=== PATIENT | female | born 1930 | race Caucasian/White ===

== ENCOUNTER 2016-10-17 12:55 | Inpatient (IN) ==
[2016-10-17] MEDS ORDERED: NS 1,000 ML IV ONE (13:20)
--- NOTE | 2016-10-17 13:33 | EKG Report ---
Test Performed on : 10/17/2016 1:18:57 PM Test Reason : CHEST PAIN Blood Pressure : / mmHG Vent. Rate : 103 BPM Atrial Rate : 103 BPM P-R Int : 166 ms QRS Dur : 088 ms QT Int : 378 ms P-R-T Axes : 062 064 077 degrees QTc Int : 495 ms Sinus tachycardia. with premature supraventricular complexes. Nonspecific ST abnormality Abnormal ECG When compared with ECG of 31-OCT-2015 11:43, premature supraventricular complexes. are now present T wave inversion no longer evident in Lateral leads Unconfirmed Result
[2016-10-17 14:07] LABS: BILIRUBIN URINE NEGATIVE (NEGATIVE); BLOOD URINE 1+ (NEGATIVE); CLARITY SL. CLOUDY (CLEAR); COLOR YELLOW; LEUKOCYTES URINE 2+ (NEGATIVE); NITRITE URINE POSITIVE (NEGATIVE); PH URINE 6.5; PROTEIN URINE TRACE mg/dL (NEGATIVE); UROBILINOGEN URINE NORMAL
[2016-10-17 14:13] LABS: URINE CULTURE PL NEEDED? YES; URINE EPITHELIAL CELLS <10 /HPF (<10); URINE RBC <10 /HPF (<10); URINE SOURCE CLEAN CATCH
[2016-10-17 14:13] LABS: MANUAL DIFF NEEDED? NO
--- NOTE | 2016-10-17 14:15 | Diag Imaging Result Document ---
PROCEDURE NAME: KUB ABDOMEN - 10/17/2016 KUB: FINDINGS: There is stool and gas throughout the colon. There is no evidence of small bowel dilatation, organomegaly, or mass. There are extensive vascular calcifications and numerous phleboliths. IMPRESSION: Constipation.
[2016-10-17 14:16] LABS: BASO% 0.3 % (0.0-0.8); EOS# 0.02 X1000 (0.0-0.7); EOS% 0.1 % (0.0-10.0); HEMATOCRIT 31.5 % (37.0-47.0); HEMOGLOBIN 10.1 g/dL (12.0-16.0); IMM GRAN# 0.09 X1000 (0.0-0.04); IMM GRAN% 0.6 % (0.0-0.5); LYMPH# 1.49 X1000 (1.2-3.4); LYMPH% 9.4 % (20.5-51.1); MCH 27.6 PG (27-31); MCHC 32.1 g/dL (33-37); MCV 86.1 FL (81-99); MONO# 1.02 X1000 (0.11-0.59); MONO% 6.4 % (1.7-9.3); MPV 12.7 FL (7.4-10.4); NEUT% 83.2 % (42.2-75.2); PLT 205 X1000 (130-400); RBC 3.66 XMIL (4.2-5.4)
[2016-10-17 14:33] LABS: AMYLASE 43 U/L (20-200); LIPASE 32 U/L (13-60)
--- NOTE | 2016-10-17 14:39 | Diag Imaging Result Document ---
PROCEDURE NAME: CHEST-PORTABLE - 10/17/2016 AP PORTABLE CHEST: TIME: 1328 hours. FINDINGS: There is ill-defined opacity in the right upper lobe. This is more apparent than on the previous study of 10/31/2015; however, the remainder of the chest is unchanged in appearance. IMPRESSION: Possible mild bronchopneumonia, right upper lobe.
[2016-10-17 14:40] LABS: ALBUMIN 3.6 g/dL (3.5-5.0); CALCIUM 9.3 mg/dL (8.8-10.2); MAGNESIUM 1.5 mg/dL (1.5-2.7); POTASSIUM 4.6 mmol/L (3.5-5.1); TOTAL BILIRUBIN 0.3 mg/dL (0.20-1.00); TOTAL PROTEIN 7.7 g/dL (6.3-8.3)
[2016-10-17 14:43] LABS: INR 1.09 (0.86-1.15); PROTIME 14.4 Seconds (12.1-15.5)
[2016-10-17 14:44] LABS: PTT PL 33.9 Seconds (22.6-43.9)
[2016-10-17] MEDS ORDERED: XANAX ONE (14:57)
[2016-10-17] MEDS ORDERED: XANAX PO ONE (15:08)
[2016-10-17] MEDS ORDERED: NORCO-7.5 PO ONE (15:37)
[2016-10-17] MEDS ORDERED: ROCEPHIN 1 GM/NS 1 GM/50 ML IVPB IV ONE (15:37)
--- NOTE | 2016-10-17 16:00 | PROVIDER DOCUMENTATION ---
This chart was entered by Wendy Galindo Scribe, acting as scribe for Elijah Mcgovern MD. HPI-General Adult - General Chief Complaint: Flu Symptoms Stated Complaint: PALPITATIONS/FEVER Time Seen by Provider: 10/17/16 13:10 Source: patient Allergies/Adverse Reactions: Patient Allergies Allergy/AdvReac Type Severity Reaction Status Date / Time codeine Allergy NAUSEA Verified 10/17/16 13:17 morphine AdvReac NAUSEA/VOMI Verified 10/17/16 13:17 TING Home Medications: Home Medication List Medication Instructions Recorded Confirmed Last Taken Type Levothyroxine [Synthroid] 50 microgm PO DAILY 10/31/15 10/17/16 11/17/15 05:00 History Metformin [Glucophage] 1,000 mg PO BID 10/31/15 10/17/16 11/16/15 18:00 History Metoprolol Succinate E.r. [Toprol 50 mg PO DAILY 10/31/15 10/17/16 11/17/15 09: 53 History Xl] Omeprazole 40 mg PO DAILY 10/31/15 10/17/16 11/16/15 18:00 History Sitagliptin Phosphate [Januvia] 100 mg PO DAILY 10/31/15 10/17/16 11/16/15 18: 00 History Glyburide [Diabeta] 5 mg PO WBREAKFAST #30 tablet 11/02/15 10/17/16 11/16/15 Rx Doxycycline 50 mg PO BID #0 capsule 11/17/15 10/17/16 Unknown Rx Alprazolam [Xanax] 0.25 mg PO 4XDAY 10/17/16 10/17/16 Unknown History Triamterene/Hydrochlorothiazid 1 tab PO DAILY 10/17/16 10/17/16 Unknown History [Triamterene-Hctz 75-50 mg Tab] - History of Present Illness -Gen Adult Nature of Presenting Problems: Pt is 86 y/o F presents to the ED with flu like symptoms. Pt's caregiver states body aches and F. Pt denies N/V/D. 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 Pt denies cough. Location of Pain/Injury: reports: generalized Pain Radiation: reports: no radiation Quality of Pain: reports: aching Severity: reports: mild Onset/Duration: reports: this morning Timing: reports: still present Context/Activities at Onset: reports: light activity Modifying Factors: improves with: nothing Associated Symptoms: reports: fever/chills (F), muscle aches, weakness. denies : anxiety, arm pain, back/neck pain, chest pain, constipation, cough, diaphoresis, diarrhea, dizziness, EENT symptoms, fatigue, genitourinary problems , headaches, heartburn, joint pain, loss of appetite, malaise, sinus congestion/ drainage, nausea, rash, seizure, shortness of breath, sensory/motor loss, pain with inspiration, swelling/mass in abdomen, syncope, vomiting, trouble walking Similar Symptoms Previously?: No Recently seen or treated by another doctor?: No Review of Systems - Adult - REVIEW OF SYSTEMS - ADULT Constitutional: reports: fever. denies: chills Eyes: denies: blurred vision, double vision Ears, Nose, Mouth & Throat: denies: ear pain, nose pain, throat pain Cardiovascular: reports: irregular heart rate (tachy). denies: chest pain, heart murmur Respiratory: denies: cough, shortness of breath, wheezing Gastrointestinal: denies: abdominal pain, diarrhea, nausea, vomiting Genitourinary: denies: dysuria, hematuria Musculoskeletal: reports: muscle aches, muscle weakness. denies: bone pain, joint pain, neck pain Integumentary: denies: hives, itching, mole changes Neurological: denies: dizziness/vertigo, headache/migraines Psychiatric: reports: no symptoms reported Endocrine: reports: no symptoms reported Hematologic/Lymphatic: reports: no symptoms reported Allergic/Immunologic: reports: no symptoms reported All Other Systems: Reviewed and Negative Past History - Adult - PAST MEDICAL HISTORY-ADULT Review of Records: reports: Nursing Assessment Review, Medications Reviewed, Social history reviewed & non-contributory. 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) - PRIOR SURGERIES/PROCEDURES Surgical/Procedure History: reports: cholecystectomy, hysterectomy - IMMUNIZATION STATUS Childhood Immunizations: See Nurse Assessment Flu Vaccine: See Nurse Assessment - FAMILY HISTORY Family History: reviewed, not pertinent - SOCIAL HISTORY Smoking: denies Substance Use: denies Living Situation: family Physical Exam-General - PHYSICAL EXAM-ADULT Initial Vital Signs Reviewed: Yes - CONSTITUTIONAL General Appearance: appears well, alert, no apparent distress - EYES Eyes: PERRL/EOMI, pink conjunctivae - HEAD, EARS, NOSE, MOUTH & THROAT HENMT: normocephalic/atraumatic, moist mucous membranes, normal ENT inspection, TMs normal, pharynx normal - NECK Neck: non-tender, full range of motion, supple, normal inspection - RESPIRATORY Respiratory: chest non-tender, lungs clear, normal breath sounds, no pleuratic chest pain, no respiratory distress, no accessory muscle use - CARDIOVASCULAR Cardiovascular: normal peripheral pulses, no edema, no gallop, no JVD, no murmur , tachycardia - GASTROINTESTINAL (ABDOMEN) Abdominal Exam: normal bowel sounds, non tender, soft, no organomegaly, no pulsatile mass - LYMPHATIC Lymphatic: no adenopathy - MUSCULOSKELETAL Back Exam: normal inspection, no CVA tenderness, no vertebral tenderness Extremity: normal range of motion, non-tender, no pedal edema, no calf tenderness, normal capillary refill, pelvis stable - SKIN Integumentary: normal color, normal turgor, warm/dry - NEUROLOGIC Neurologic: grossly normal - PSYCHIATRIC Psych/Mental Status: normal mood/affect, oriented x 3 Progress - PLAN OF CARE/RESULTS Progress/Plan/Lab Results: Vital Signs - 8 hr 10/17/16 13:11 Temperature 101.1 F H Pulse Rate 108 H Respiratory Rate 20 Blood Pressure 168/81 O2 Sat by Pulse Oximetry 96 Orders Category Date Time Status Cardiac Monitoring DIRECTED Care 10/17/16 13:20 Active Saline Loc NOW Care 10/17/16 13:20 Active CHEST-PORTABLE [RAD] Stat Exams 10/17/16 13:20 Ordered BLOOD CULTURE [BLDCUL] Stat Lab 10/17/16 13:20 Ordered CBC WITH ELECTRONIC DIFF [HEME] Stat Lab 10/17/16 13:20 Ordered CK PROFILE [SP CHEM] Stat Lab 10/17/16 13:20 Ordered COMPREHENSIVE METABOLIC PANEL [CHEM] Stat Lab 10/17/16 13:[address] Stat Lab 10/17/16 13:20 Uncollected LACTATE, PLASMA [CHEM] Stat Lab 10/17/16 13:20 Ordered MAGNESIUM [CHEM] Stat Lab 10/17/16 13:20 Ordered PRO B-NATRIURETIC PEPTIDE Stat Lab 10/17/16 13:[address] Ordered [address]IME WITH INR [address] [COAG] Stat Lab 10/17/16 13:[address] [COAG] Stat Lab 10/17/16 13:20 Ordered TROPONIN T Stat Lab 10/17/16 13:[address] W/POSS RFLX CULT [URINALYSIS] Stat Lab 10/17/16 13:20 Uncollected 0.9% Sodium Chloride Inj [Ns] 1,000 ml Med 10/17/16 13:20 Active IV 250 mls/hr EKG [EKG] Stat Ther 10/17/16 13:20 Ordered Laboratory Tests 10/17/16 10/17/16 10/17/16 13:20 13:34 13:55 WBC RBC Hgb Hct MCV MCH MCHC RDW Std Deviation Plt Count MPV Immature Gran % (Auto) Neut % (Auto) Lymph % (Auto) [place] % (Auto) Eos % (Auto) Baso % (Auto) Immature Gran # (Auto) Neut # (Auto) Lymph # (Auto) [place] # (Auto) Eos # (Auto) Baso # (Auto) PT INR APTT (Factor Assay) Sodium 127 L Potassium 4.6 Chloride 90 L Carbon Dioxide 20 L Anion Gap 17 BUN 23 H Creatinine 0.9 Estimated GFR/1.73 m2 60 BUN/Creatinine Ratio 26 Glucose 301 H Calculated Osmolality 270 Calcium 9.3 Magnesium 1.5 Total Bilirubin 0.30 AST 24 ALT 16 Alkaline Phosphatase 112 H Creatine Kinase 22 L Troponin T Lip-D-Kxcznatanrr Pept Total Protein 7.7 Albumin 3.6 Globulin 4.0 Albumin/Globulin Ratio 1.0 Amylase Lipase Plasma Lactate Urine Source CLEAN CATCH Urine Color YELLOW Urine Clarity SL. CLOUDY A Urine pH 6.5 Ur Specific [place] 1.010 Urine Protein TRACE A Urine Ketones TRACE Urine Blood 1+ A Urine Nitrite POSITIVE A Urine Bilirubin NEGATIVE Urine Urobilinogen NORMAL Urine Microscopic RBC <10 Urine WBC 2+ A Urine Microscopic WBC 10-20 A Ur Epithelial Cells <10 Urine Bacteria 3+ Urine Yeast PRESENT Urine Glucose 3+(500 mg/dL) A Influenza A (Rapid) NEGATIVE Influenza B (Rapid) NEGATIVE 10/17/16 10/17/16 10/17/16 13:55 13:55 13:55 WBC 15.91 H RBC 3.66 L Hgb 10.1 L Hct 31.5 L MCV 86.1 MCH 27.6 MCHC 32.1 L RDW Std Deviation 17.9 H Plt Count 205 MPV 12.7 H Immature Gran % (Auto) 0.6 H Neut % (Auto) 83.2 H Lymph % (Auto) 9.4 L [place] % (Auto) 6.4 Eos % (Auto) 0.1 Baso % (Auto) 0.3 Immature Gran # (Auto) 0.09 H Neut # (Auto) 13.25 H Lymph # (Auto) 1.49 [place] # (Auto) 1.02 H Eos # (Auto) 0.02 Baso # (Auto) 0.04 PT INR APTT (Factor Assay) Sodium Potassium Chloride Carbon Dioxide Anion Gap BUN Creatinine Estimated GFR/1.73 m2 BUN/Creatinine Ratio Glucose Calculated Osmolality Calcium Magnesium Total Bilirubin AST ALT Alkaline Phosphatase Creatine Kinase Troponin T < 0.010 Asn-R-Qzsnyyyxcvb Pept 947 H Total Protein Albumin Globulin Albumin/Globulin Ratio Amylase Lipase Plasma Lactate Urine Source Urine Color Urine Clarity Urine pH Ur Specific [place] Urine Protein Urine Ketones Urine Blood Urine Nitrite Urine Bilirubin Urine Urobilinogen Urine Microscopic RBC Urine WBC Urine Microscopic WBC Ur Epithelial Cells Urine Bacteria Urine Yeast Urine Glucose Influenza A (Rapid) Influenza B (Rapid) 10/17/16 10/17/16 10/17/16 13:55 13:55 14:06 WBC RBC Hgb Hct MCV MCH MCHC RDW Std Deviation Plt Count MPV Immature Gran % (Auto) Neut % (Auto) Lymph % (Auto) [place] % (Auto) Eos % (Auto) Baso % (Auto) Immature Gran # (Auto) Neut # (Auto) Lymph # (Auto) [place] # (Auto) Eos # (Auto) Baso # (Auto) PT 14.4 INR 1.09 APTT (Factor Assay) 33.9 Sodium Potassium Chloride Carbon Dioxide Anion Gap BUN Creatinine Estimated GFR/1.73 m2 BUN/Creatinine Ratio Glucose Calculated Osmolality Calcium Magnesium Total Bilirubin AST ALT Alkaline Phosphatase Creatine Kinase Troponin T Kcm-F-Cpjiseccgaa Pept Total Protein Albumin Globulin Albumin/Globulin Ratio Amylase 43 Lipase 32 Plasma Lactate 4.7 H Urine Source Urine Color Urine Clarity Urine pH Ur Specific [place] Urine Protein Urine Ketones Urine Blood Urine Nitrite Urine Bilirubin Urine Urobilinogen Urine Microscopic RBC Urine WBC Urine Microscopic WBC Ur Epithelial Cells Urine Bacteria Urine Yeast Urine Glucose Influenza A (Rapid) Influenza B (Rapid) Result Diagrams: 10/17/16 13:55 10/17/16 13:55 - EKG 1 Time of EKG reading by physician:: 13:18 EKG Read and Signed by:: Elijah Mcgovern EKG Interpretation (*Must complete 3 of following elements*): Abnormal Rate: 103 Rhythm: sinus tachycardia with premature supraventricular complexes Comments: nonspecific ST abnormality Departure - Departure Time of Disposition Decision: 15:37 DIAGNOSIS: Hyponatremia UTI (urinary tract infection) Qualifiers: Urinary tract infection type: site unspecified Hematuria presence: without hematuria Qualified Code(s): N39.0 - Urinary tract infection, site not specified Fever Qualifiers: Fever type: unspecified Qualified Code(s): R50.9 - Fever, unspecified Disposition: ADMITTED INPATIENT 09 Certified Medical Emergency: Emergent Condition: Stable Additional Freetext Instructions: ED Follow Up Instructions: You have been treated by a care provider in the Emergency Department. These instructions are being provided to you so you can have an understanding of how to care for yourself upon discharge. Upon discharge from the Emergency Department, you are responsible for making arrangements for follow-up care by a physician of your choice. Take all prescribed medications as directed. Return to the Emergency Department immediately for any new or worsening symptoms. You may call the Physician Referral phone number at [phone] to obtain a list of Physicians who are taking new patients. Referrals and Follow-Ups: Travis Omalley MD [Primary Care Provider] - This chart was documented by the indicated scribe, (Wendy Galindo Scribe) and accurately reflects the services I performed and decisions made by , Elijah Mcgovern MD, as attested by the provider's signature.
[2016-10-17] MEDS ORDERED: LEVAQUIN 500 MG/D5W 500 MG/100 ML IVPB IV ONE (16:15)
[2016-10-17] MEDS ORDERED: TYLENOL PO ONE (16:15)
[2016-10-17] MEDS ORDERED: ZOFRAN IV PRN (18:31)
[2016-10-17] MEDS: XANAX PO PRN ×2 (19:03→23:08)
--- NOTE | 2016-10-17 20:38 | HISTORY AND PHYSICAL ---
PRIMARY CARE PHYSICIAN: Lino Omalley MD. CHIEF COMPLAINT: Flu-like symptoms. Body aches. HISTORY OF PRESENT ILLNESS: This is a very pleasant 86-year-old female with a history of lower extremity paralysis, hypertension, diabetes mellitus who presented to the emergency room with her consumer credit counselor stating that for about the last 24 hours she has had a temperature that is reported over 101 with generalized body aches, rigors, vomiting. She does state that she hurts all over with movement and this increased with her elevated temperature and it did decrease as her temperature subsided. Chest x-ray, she was found to have right upper lobe pneumonia with an elevated white count. On arrival, she did have a temperature of 101.1 degrees oral. Blood cultures and urine cultures were obtained. She was given Levaquin as well as Rocephin and is being admitted for further evaluation and treatment. 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 PAST SURGICAL HISTORY: Cholecystectomy. Hysterectomy. Hemorrhoidectomy. Spinal cord surgery. Urostomy. ALLERGIES: Codeine and morphine which cause nausea and vomiting. HOME MEDICATIONS: Xanax, triamterene, Januvia, omeprazole, Toprol-XL, Glucophage, Synthroid, glyburide, dicyclomine 10 mg. REVIEW OF SYSTEMS: A 14 point review of systems is discussed with the patient with pertinent positives stated in the HPI. She denied chest pain, palpitations, dizziness, cough, shortness of breath, diarrhea. PHYSICAL EXAMINATION: GENERAL: This is an 86-year-old female who was lying in the bed, in no distress. VITAL SIGNS: Blood pressure is 121/78 with a heart rate of 100, respirations are 18, temperature is 101.7 degrees with oxygen saturations of 95-100% on room air. HEENT: Head is normocephalic, atraumatic. Pupils equal, round, react to light. EOMs are intact. Sclerae anicteric. Mucous membranes are dry. NECK: Supple. Trachea midline. CARDIOVASCULAR: She is tachycardic. S1 and S2 appreciated. PULMONARY: Breath sounds are diminished, clear with no increased work of breathing noted. GASTROINTESTINAL: Abdomen is soft, nontender, nondistended with bowel sounds in all 4 quadrants. MUSCULOSKELETAL: She has good range of motion to her upper extremities, lower extremities are paralyzed. She does have a brace on the right lower extremity from foot drop. NEUROLOGIC: She is alert and oriented x3. DIAGNOSTICS: WBC is 15.91 with hemoglobin 10.1, hematocrit 31.5 and platelets of 205,000. Sodium is 127, potassium 4.6, BUN 23, creatinine 0.9, with a glucose of 301. Urine microscopic reveals nitrite positive with 1+ blood, 10-20 white blood cells, 3+ bacteria. Abdominal x-ray reveals constipation. Chest x-ray reveals right upper lobe pneumonia. ASSESSMENT: 1. Right upper lobe pneumonia. 2. Urinary tract infection. 3. Fever. 4. Hyponatremia. 5. Diabetes type 2 with hyperglycemia. 6. Hypertension. 7. Thyroid disorder. PLAN: She will be admitted to the hospital. She will be placed on telemetry. Blood cultures and urine cultures have been obtained. We will continue with Levaquin and Rocephin for antibiotic coverage. We will gently hydrate. We will identify and continue her home medications. As her sodium is low, we will hold her hydrochlorothiazide. We will check a thyroid stimulating hormones. We will add pattern blood glucose with sliding scale insulin, neurologic checks. Further treatments pending hospital course. Dictated by FERNANDO Liao for Evan Skaggs MD cc: FERNANDO Liao MD
[2016-10-17] MEDS: HUMALOG DOSE (PARKWAY) SUBQ SCH (21:06)
[2016-10-17] MEDS: TYLENOL PO PRN (22:22)
[2016-10-18 06:20] LABS: HEMATOCRIT 28.8 % (37.0-47.0); HEMOGLOBIN 9.1 g/dL (12.0-16.0); MCH 27.1 PG (27-31); MCHC 31.6 g/dL (33-37); MCV 85.7 FL (81-99); MPV 12.8 FL (7.4-10.4); RBC 3.36 XMIL (4.2-5.4)
[2016-10-18] MEDS: HUMALOG DOSE (PARKWAY) SUBQ SCH ×4 (06:30→21:56)
[2016-10-18 06:53] LABS: ALBUMIN 3.2 g/dL (3.5-5.0); CALCIUM 8.8 mg/dL (8.8-10.2); HEMOGLOBIN A1C 8.4 % (4.8-6.0); POTASSIUM 3.5 mmol/L (3.5-5.1); TOTAL BILIRUBIN 0.7 mg/dL (0.20-1.00); TOTAL PROTEIN 7.1 g/dL (6.3-8.3)
--- NOTE | 2016-10-18 08:05 | PROGRESS NOTE ---
DATE: 10/18/2016 SUBJECTIVE: Patient notes she is feeling better. Her fluid symptoms are improving. She is not having any muscle aches, currently. PHYSICAL EXAMINATION: Vital Signs: Temperature 98, pulse 93, respiratory rate 18, BP 154/42 to 147/112. General: Patient well developed, well nourished. She is in no current respiratory distress. She is asking if she can go home. HEENT: Normocephalic and atraumatic. Neck: Supple. CV: Regular rate. Chest: Relatively clear. Abdomen: Soft. Extremities: Moves all extremities. Neurologic: No changes. LABORATORY: WBC 16, hemoglobin and hematocrit 9 and 28. Sodium 13.0 glucose 175, TSH 8.7. ASSESSMENT: 1. Right upper lobe pneumonia. 2. Urinary tract infection. 3. Fever resolved. 4. Hyponatremia. 5. Stable diabetes. 6. Hyperglycemia stable. 7. Hypertension. Blood pressure is elevated. We will restart her home medications before adjusting. 8. Hypothyroidism. TSH is elevated. We will increase her Synthroid to 75. PLAN: We will change her Levaquin to p.o. We will saline lock and will follow. Hopefully home in 1-2 days. cc: Evan Skaggs MD
[2016-10-18] MEDS ORDERED: SYNTHROID PO SCH ×2 (09:00)
[2016-10-18] MEDS ORDERED: PRILOSEC PO SCH (09:00)
[2016-10-18] MEDS ORDERED: DYAZIDE PO SCH (09:00)
[2016-10-18] MEDS: DIABETA PO SCH (09:52)
[2016-10-18] MEDS: XANAX PO PRN ×3 (09:52→23:02)
[2016-10-18] MEDS: LEVAQUIN PO SCH (09:52)
[2016-10-18] MEDS: JANUVIA PO SCH (09:52)
[2016-10-18] MEDS: GLUCOPHAGE PO SCH ×2 (09:53→21:52)
[2016-10-18] MEDS: TOPROL XL PO SCH (09:53)
[2016-10-18] MEDS ORDERED: NORCO-5 PO ONE (12:20)
[2016-10-18] MEDS: NORCO-5 PO PRN ×2 (12:33→17:28)
[2016-10-18] MEDS ORDERED: CALMOSEPTINE OINTMENT TOP PRN (13:10)
[2016-10-18] MEDS: TYLENOL PO PRN (23:02)
[2016-10-19] MEDS: NORCO-5 PO PRN ×3 (05:53→17:42)
[2016-10-19] MEDS: HUMALOG DOSE (PARKWAY) SUBQ SCH ×4 (06:48→21:39)
[2016-10-19] MEDS: PRILOSEC PO SCH (06:49)
[2016-10-19 06:58] LABS: HEMATOCRIT 29.3 % (37.0-47.0); HEMOGLOBIN 9.4 g/dL (12.0-16.0); MCH 27.5 PG (27-31); MCHC 32.1 g/dL (33-37); MCV 85.7 FL (81-99); MPV 12.9 FL (7.4-10.4); RBC 3.42 XMIL (4.2-5.4)
[2016-10-19] MEDS ORDERED: SYNTHROID PO SCH (07:00)
[2016-10-19 07:21] LABS: ALBUMIN 3.1 g/dL (3.5-5.0); CALCIUM 8.8 mg/dL (8.8-10.2); POTASSIUM 4.2 mmol/L (3.5-5.1); TOTAL BILIRUBIN 0.5 mg/dL (0.20-1.00); TOTAL PROTEIN 6.7 g/dL (6.3-8.3)
[2016-10-19] MEDS ORDERED: SYNTHROID PO ONE (09:00)
--- NOTE | 2016-10-19 09:41 | PROGRESS NOTE ---
DATE: 10/19/2016 SUBJECTIVE: The patient notes she had a terrible night last night. She did not sleep well. She noticed that her catheter became unplugged and her bed became wet, and she could not get comfortable after this. OBJECTIVE: Temperature is 98, pulse 86, respiratory rate 18, blood pressure 149/54, saturation 90% on room air to 98% on room air. General: The patient is awake and alert. She is in no respiratory distress. She is pleasant to talk with. HEENT: Normocephalic and atraumatic. PERRL. Neck: Supple. Cardiovascular: Regular rate. Chest relatively clear. Abdomen: Soft. Extremities: Moves all extremities. Neurologic: No changes. DIAGNOSTIC DATA: Sodium is 125. WBC is 13.9. TSH is 13.87. ASSESSMENT: 1. Hypothyroidism. We will again increase her thyroid medication. 2. Hyponatremia. We will hold her Dyazide as this certainly is contributing to her hyponatremia. 3. Leukocytosis. The patient is still on Levaquin secondary to gram-negative rods in her urine. We do not have a final culture and sensitivity. Hopefully this will be reported soon, and we will adjust if needed. 4. Anemia of chronic disease. 5. Fever, resolved. 6. Diabetes. Stable. 7. Hypertension. Blood pressures are a little bit better, though we are holding her Dyazide. If her blood pressures increase, we will add an DAVINA inhibitor, as she certainly should be on this with diabetes. cc: Evan Skaggs MD
[2016-10-19] MEDS: LEVAQUIN PO SCH (10:01)
[2016-10-19] MEDS: JANUVIA PO SCH (10:01)
[2016-10-19] MEDS: GLUCOPHAGE PO SCH ×2 (10:02→17:41)
[2016-10-19] MEDS: TOPROL XL PO SCH (10:02)
[2016-10-19] MEDS: PRINIVIL PO SCH (10:02)
[2016-10-19] MEDS: XANAX PO PRN ×3 (10:02→21:37)
[2016-10-19] MEDS: DIABETA PO SCH (10:02)
[2016-10-19] MEDS ORDERED: DULCOLAX PR ONE (13:56)
[2016-10-19] MEDS: TYLENOL PO PRN (21:37)
[2016-10-19] MEDS ORDERED: MYLICON PO ONE (22:55)
[2016-10-20] MEDS: NORCO-5 PO PRN ×3 (04:21→17:45)
[2016-10-20] MEDS: SYNTHROID PO SCH (06:09)
[2016-10-20] MEDS: PRILOSEC PO SCH (06:10)
[2016-10-20] MEDS: HUMALOG DOSE (PARKWAY) SUBQ SCH ×4 (06:13→22:18)
[2016-10-20 06:40] LABS: HEMATOCRIT 28.1 % (37.0-47.0); HEMOGLOBIN 9.1 g/dL (12.0-16.0); MCH 27.7 PG (27-31); MCHC 32.4 g/dL (33-37); MCV 85.4 FL (81-99); MPV 12.5 FL (7.4-10.4); RBC 3.29 XMIL (4.2-5.4)
[2016-10-20 06:47] LABS: ALBUMIN 2.9 g/dL (3.5-5.0); CALCIUM 8.8 mg/dL (8.8-10.2); MAGNESIUM 1.4 mg/dL (1.5-2.7); POTASSIUM 4.1 mmol/L (3.5-5.1); TOTAL BILIRUBIN 0.3 mg/dL (0.20-1.00); TOTAL PROTEIN 6.8 g/dL (6.3-8.3)
[2016-10-20] MEDS: JANUVIA PO SCH (09:05)
[2016-10-20] MEDS: PRINIVIL PO SCH (09:05)
[2016-10-20] MEDS: GLUCOPHAGE PO SCH ×2 (09:06→17:46)
[2016-10-20] MEDS: XANAX PO PRN ×2 (09:06→17:46)
[2016-10-20] MEDS: TOPROL XL PO SCH (09:06)
[2016-10-20] MEDS: DIABETA PO SCH (09:06)
[2016-10-20] MEDS: LEVAQUIN PO SCH (09:06)
[2016-10-20] MEDS ORDERED: MAGNESIUM SULFATE 2 GM/S.W.I. 2 GM/50 ML IVPB IV ONE (10:36)
[2016-10-20] MEDS: MIRALAX PO SCH (11:19)
[2016-10-20] MEDS: LACTULOSE PO SCH ×2 (11:19→22:18)
--- NOTE | 2016-10-20 13:00 | PROGRESS NOTE ---
DATE: 10/20/2016 SUBJECTIVE: The patient complains of hurting all over with no particular focality of her pain. OBJECTIVE: Vital signs: Temperature 98, pulse 88, respiratory rate 20, blood pressure 137/41 to 164/50, saturation 97% on room air. General: The patient is a well-developed obese female who is in no respiratory distress currently. She is complaining of right shoulder, left arm, right and left leg pain. Notes that she hurts all over. She does not normally ambulate as she is paralyzed from the waist down and requires a wheelchair. HEENT: Normocephalic and atraumatic. PERRLA. Neck: Supple. Cardiovascular: Regular rate. Chest: Relatively clear. Abdomen: Soft. Extremities: Moves all extremities. Neurologic: No focal changes. Skin: Warm and dry, no rashes. ASSESSMENT: 1. Right upper lobe pneumonia, improving. 2. Klebsiella pneumoniae urinary tract infection sensitive to Levaquin. 3. Constipation. We will add MiraLAX and lactulose. 4. Generalized weakness. We will attempt to get the patient into the chair today and possibly into a wheelchair so she can begin ambulation so that she can get home. 5. Hyponatremia. Sodium is still 125. We did stop her Dyazide, but I believe she received 1 dose yesterday. 6. Diabetes with hyperglycemia. 7. Hypertension. Blood pressures are stable. PLAN: Hopefully the patient can discharge home later this afternoon if she is feeling better. She will continue on Levaquin for a total of 7 days. We will write a prescription for MiraLAX daily, [place] p.r.n. She currently receives Xanax from her primary. cc: Evan Skaggs MD
[2016-10-21] MEDS: NORCO-5 PO PRN ×4 (05:50→21:51)
[2016-10-21] MEDS: XANAX PO PRN ×4 (05:51→21:51)
[2016-10-21] MEDS: PRILOSEC PO SCH ×2 (05:51→06:06)
[2016-10-21] MEDS: HUMALOG DOSE (PARKWAY) SUBQ SCH ×4 (06:06→21:52)
[2016-10-21] MEDS: SYNTHROID PO SCH (06:15)
[2016-10-21] MEDS: JANUVIA PO SCH (08:53)
[2016-10-21] MEDS: DIABETA PO SCH (08:53)
[2016-10-21] MEDS: TOPROL XL PO SCH (08:53)
[2016-10-21] MEDS: GLUCOPHAGE PO SCH ×2 (08:53→18:03)
[2016-10-21] MEDS: LEVAQUIN PO SCH (08:53)
[2016-10-21] MEDS: MIRALAX PO SCH (08:54)
[2016-10-21] MEDS: LACTULOSE PO SCH ×2 (08:54→21:52)
[2016-10-21] MEDS: PRINIVIL PO SCH (08:58)
[2016-10-21 10:17] LABS: HEMATOCRIT 29.7 % (37.0-47.0); HEMOGLOBIN 9.7 g/dL (12.0-16.0); MCH 27.7 PG (27-31); MCHC 32.7 g/dL (33-37); MCV 84.9 FL (81-99); MPV 11.7 FL (7.4-10.4); RBC 3.5 XMIL (4.2-5.4)
[2016-10-21 11:10] LABS: ALBUMIN 2.9 g/dL (3.5-5.0); CALCIUM 8.7 mg/dL (8.8-10.2); POTASSIUM 3.9 mmol/L (3.5-5.1); TOTAL BILIRUBIN 0.3 mg/dL (0.20-1.00)
--- NOTE | 2016-10-21 11:21 | PROGRESS NOTE ---
DATE: 10/21/2016 SUBJECTIVE: Patient complains of hurting all over. This has not really changed since admission. After only 2 discussions of almost 30 minutes with the family yesterday, this is chronic for her. PHYSICAL EXAMINATION: Vital Signs: Temperature 98, pulse 85, respiratory rate 18, BP 133/37 to 170/59, saturation 98% on room air. General: Patient is awake, alert. She is in no distress. She has multiple complaints but otherwise feeling okay. HEENT: Normocephalic, atraumatic. PHILIPPE. Neck: Supple. CV: Regular rate and rhythm. Chest: Relatively clear. Abdomen: Soft. Extremities: Moves all extremities. Neurologic: No changes. ASSESSMENT: 1. Urinary tract infection with Klebsiella pneumoniae, sensitive to Levaquin for which she is on. 2. Chronic constipation. She is on MiraLAX and lactulose. 3. Chronic pain. Continue [place] as needed. 4. Chronic anxiety. She take Xanax at home. 5. Hyponatremia. Sodium is 125, currently pending today. Her Dyazide will be continued to be held. 6. Diabetes with hyperglycemia. 7. Hypertension. Increase lisinopril to 10 mg. 8. Hypothyroidism. We will recheck level. 9. Adult failure to thrive. PLAN: Ms. Orozco wants to go home today. Her sodium level is still a little too low to discharge. Her leukocytosis has resolved. She is paralyzed from the waist down and has to have help to get out of bed. The son and daughter currently or in great discussion over whether she should be allowed to go back home versus rehab. I certainly feel as though rehab would be in her best interest but discuss with the son and the daughter that I cannot make her go to rehab. As noted, Ms. Orozco made demand to go home and if so, then we would discharge her. However, I do not feel as though that is in her best interest. cc: Evan Skaggs MD
[2016-10-21] MEDS: SODIUM CHLORIDE PO SCH ×2 (12:12→22:20)
[2016-10-22] MEDS: NORCO-5 PO PRN ×3 (02:02→13:51)
[2016-10-22] MEDS: XANAX PO PRN ×3 (02:02→20:35)
[2016-10-22] MEDS: PRILOSEC PO SCH (06:37)
[2016-10-22] MEDS: SYNTHROID PO SCH (06:37)
[2016-10-22] MEDS: HUMALOG DOSE (PARKWAY) SUBQ SCH ×4 (06:41→20:36)
[2016-10-22 07:03] LABS: HEMATOCRIT 29.7 % (37.0-47.0); HEMOGLOBIN 9.4 g/dL (12.0-16.0); MCH 27.1 PG (27-31); MCHC 31.6 g/dL (33-37); MCV 85.6 FL (81-99); MPV 11.8 FL (7.4-10.4); RBC 3.47 XMIL (4.2-5.4)
[2016-10-22 08:02] LABS: ALBUMIN 2.7 g/dL (3.5-5.0); CALCIUM 8.8 mg/dL (8.8-10.2); MAGNESIUM 1.7 mg/dL (1.5-2.7); TOTAL BILIRUBIN 0.2 mg/dL (0.20-1.00); TOTAL PROTEIN 6.8 g/dL (6.3-8.3)
[2016-10-22] MEDS: JANUVIA PO SCH (08:15)
[2016-10-22] MEDS: GLUCOPHAGE PO SCH ×2 (08:15→16:47)
[2016-10-22] MEDS: DIABETA PO SCH (08:15)
[2016-10-22] MEDS: PRINIVIL PO SCH (08:15)
[2016-10-22] MEDS: TOPROL XL PO SCH (08:15)
[2016-10-22] MEDS: LEVAQUIN PO SCH (08:15)
[2016-10-22] MEDS: LACTULOSE PO SCH ×2 (08:16→20:35)
[2016-10-22] MEDS: MIRALAX PO SCH (08:16)
[2016-10-22] MEDS: SODIUM CHLORIDE PO SCH ×2 (09:27→20:35)
[2016-10-22] MEDS: ANTIVERT PO SCH ×2 (09:27→20:35)
[2016-10-22] MEDS ORDERED: DIFLUCAN PO ONE (13:25)
[2016-10-22] MEDS ORDERED: SYNTHROID PO SCH (21:57)
--- NOTE | 2016-10-22 23:12 | PROGRESS NOTE ---
DATE: 10/22/2016 SUBJECTIVE: The patient notes she did not get out of bed yesterday because no 1 would help however she did decline getting out of bed a couple times. PHYSICAL: Vital signs: Temperature 98, pulse 87, respiratory 18, BP 142/58, saturations 97% on room air. General: Patient is awake, alert. She is in no distress. HEENT: Normocephalic, atraumatic. Neck: Supple. CV: Regular rate. Chest: Relatively clear. Abdomen: Soft. Extremities: She moves upper extremities well. She is paralyzed from the waist down. LABS: WBCs 11, hemoglobin and hematocrit 9 and 29, sodium is 126, TSH 14.3, albumin 2.71. ASSESSMENT: 1. Moderate protein calorie malnutrition. 2. Hypothyroidism. TSH has been increased already, will increase it again to 125. 3. Hyponatremia. Uncertain etiology. She was on Dyazide. This was stopped several days ago. Certainly her urinary tract infection could be contributing. Will continue sodium tablets although this appears relatively her baseline sodium as she has been 126-127 back in 2014 and again in 2016. 4. Urinary tract infection with Klebsiella pneumoniae sensitive to Levaquin. 5. Chronic constipation likely opiate caused as she is on [place]. 6. Hypertension. Blood pressure is much improved on lisinopril 10 mg. 7. Diabetes with hypoglycemia. 8. Right upper lobe pneumonia. 9. Frequent falls. PLAN: Hopefully patient can be discharged home in the a.m. She certainly needs to go to rehab but currently refuses. After home health is set up she can be discharged assuming her sodium level has stabilized. cc: Evan Skaggs MD
[2016-10-23] MEDS: PRILOSEC PO SCH (06:42)
[2016-10-23] MEDS: HUMALOG DOSE (PARKWAY) SUBQ SCH ×2 (06:43→13:22)
[2016-10-23 06:50] LABS: HEMATOCRIT 29.4 % (37.0-47.0); HEMOGLOBIN 9.2 g/dL (12.0-16.0); MCH 27.1 PG (27-31); MCHC 31.3 g/dL (33-37); MCV 86.7 FL (81-99); MPV 11.7 FL (7.4-10.4); RBC 3.39 XMIL (4.2-5.4)
[2016-10-23] MEDS ORDERED: SYNTHROID PO SCH ×2 (07:00)
[2016-10-23 08:28] LABS: ALBUMIN 2.6 g/dL (3.5-5.0); POTASSIUM 4.9 mmol/L (3.5-5.1); TOTAL BILIRUBIN 0.2 mg/dL (0.20-1.00); TOTAL PROTEIN 6.7 g/dL (6.3-8.3)
[2016-10-23] MEDS: SODIUM CHLORIDE PO SCH (08:45)
[2016-10-23] MEDS: LEVAQUIN PO SCH (08:45)
[2016-10-23] MEDS: XANAX PO PRN (08:46)
[2016-10-23] MEDS: PRINIVIL PO SCH (08:46)
[2016-10-23] MEDS: JANUVIA PO SCH (08:46)
[2016-10-23] MEDS: ANTIVERT PO SCH (08:46)
[2016-10-23] MEDS: GLUCOPHAGE PO SCH (08:46)
[2016-10-23] MEDS: DIABETA PO SCH (08:46)
[2016-10-23] MEDS: TOPROL XL PO SCH (08:46)
[2016-10-23] MEDS: MIRALAX PO SCH (08:47)
[2016-10-23] MEDS: LACTULOSE PO SCH (08:47)
[2016-10-23] MEDS ORDERED: XANAX PO ONE (12:14)
--- NOTE | 2016-10-23 12:18 | DISCHARGE SUMMARY ---
ADMISSION DATE: 10/17/2016 DISCHARGE DATE: 10/23/2016 PRIMARY CARE PHYSICIAN: Travis Omalley MD. ADMISSION DIAGNOSES: 1. Right upper lobe pneumonia. 2. Urinary tract infection. 3. Fever. 4. Hyponatremia. 5. Diabetes type 2 with hyperglycemia. 6. Hypertension. 7. Thyroid disorder. DISCHARGE DIAGNOSES: 1. Right upper lobe pneumonia, improved. 2. Klebsiella pneumoniae urinary tract infection. 3. Hyponatremia, improved. 4. Diabetes type 2 with hyperglycemia. 5. Hypertension. 6.Hypothyroidism 7. Moderate protein calorie malnutrition. 8. Chronic constipation, likely secondary to opiate use. 9. Frequent falls. SUMMARY OF FINDINGS: This is an 86-year-old female who presented to the ER with complaints of a 24 hour history of a subjective fever, body aches, rigors, vomiting. Chest x-ray showed a right upper lobe pneumonia. She had a temperature of 101.1 degrees on arrival. Blood cultures showed no growth. We obtained a urinalysis and the culture showed Klebsiella pneumoniae that was sensitive to the Levaquin. She has been afebrile for greater than 24 hours. She was placed on IV antibiotics. Physical therapy was consulted. So, it is now felt that she can safely be discharged to rehab today. DISCHARGE MEDICATIONS: [place] 5 one p.o. q.4 h. p.r.n., #20 with no refills; Levaquin 500 mg 1 p.o. daily for 7 days; lisinopril 10 mg p.o. daily; Synthroid 100 mcg p.o. daily ; Januvia 100 mg p.o. daily; omeprazole 40 mg p.o. daily; metoprolol 50 mg p.o. daily; metformin 1000 mg p.o. b.i.d.; Glyburide 5 mg p.o. with breakfast daily; Xanax 0.25 mg p.o. 4 times daily; dicyclomine 10 mg p.o. 4 times daily. FOLLOWUP: She will follow up with her primary care physician once her rehab has been completed. All discharge instructions have been reviewed with the patient and caregiver and they verbalized understanding. TIME SPENT: 35 minutes. Dictated by FERNANDO Youssef for Nahid Saez MD cc: Kelly Ayden, SENIOR BENEFITS MANAGER MD Travis Metcalf MD [facility]
[2016-10-23 15:00] VITALS: BP 156/52
== END 2016-10-23 19:40 ==
LOC: P.ED 12:55 → P.MEDSURG 12:55 → OBSVTOIN 16:55 → SUATTDRO 16:55
PROVIDERS: ATTEND Internal Medicine